=== PATIENT | male | born 1950 | race Caucasian/White ===

== ENCOUNTER 2023-10-23 08:25 | Day surgery (SDC) | payer OTHER, MEDICARE ==
[2023-10-23] MEDS: Lactated Ringers 1,000 ML IV SCH (08:55)
[2023-10-23] MEDS ORDERED: fentaNYL 100 MCG/2 ML SDV ONE (09:19)
[2023-10-23] MEDS ORDERED: Propofol 200 MG/20 ML SDV ONE ×2 (09:19→10:46)
[2023-10-23 11:37] VITALS: BP 125/83; PULSE 61
== END 2023-10-23 12:38 | disposition home or self-care (01) ==
LOC: VM.SDS 08:25
PROVIDERS: ATTEND Family Medicine
DX: Z12.11 Encounter for screening for malignant neoplasm of colon (principal); D12.0 Benign neoplasm of cecum; D12.6 Benign neoplasm of colon, unspecified; K57.30 Diverticulosis of large intestine without perforation or abscess without bleeding; I10 Essential (primary) hypertension; E78.00 Pure hypercholesterolemia, unspecified; E66.01 Morbid (severe) obesity due to excess calories
CPT/HCPCS: 00811; 88305; 99100; J2704; J3010; J7120